=== PATIENT | female | born 1945 | race Caucasian/White ===

== ENCOUNTER → 2022-05-31 14:15 | Outpatient (CLI) | payer MEDICARE, SELFPAY ==
[2022-05-31 16:12] LABS: Basophils # 0.1 K/mm3 (0-0.2); Basophils % 0.9 % (0.1-2.0); Eosinophils # 0.2 K/mm3 (0.0-0.4); Eosinophils % 3.2 % (0.1-12.0); Hematocrit 43.9 % (37.0-47.0); Hemoglobin 13.5 g/dL (12.2-16.2); Lymphocytes # 1.6 K/mm3 (0.7-4.5); Lymphocytes % 31.1 % (10-50); Mean Corpuscular HGB Conc 30.7 g/dL (31.8-35.4); Mean Corpuscular Hemoglobin 31.2 pg (27.0-31.2); Mean Corpuscular Volume 101.4 fl (81-99); Mean Platelet Volume 9.4 fl (7.4-10.4); Monocytes # 0.3 K/mm3 (0.1-1.0); Neutrophils # 3.1 K/mm3 (1.8-7.8); Neutrophils % 58.8 % (37.0-80.0); Platelet Count 201 K/mm3 (142-424); Red Blood Count 4.33 M/mm3 (4.20-5.40); White Blood Count 5.2 K/mm3 (4.8-10.8)
[2022-05-31 17:14] LABS: Alanine Aminotransferase 16 U/L (12-78); Albumin Level 4.1 g/dl (3.5-5.0); Alkaline Phosphatase 126 U/L (38-126); Anion Gap 13.3 mEq/L (5-15); Aspartate Amino Transferase 42 U/L (14-36); Bilirubin,Direct 0.2 mg/dl (0.0-0.4); Bilirubin,Indirect 0.2 mg/dL (0.0-0.9); Bilirubin,Total 0.4 mg/dl (0.2-1.3); Bilirubin,Unconjugated 0.2 mg/dL (0.0-1.1); Blood Urea Nitrogen 20 mg/dl (7-17); Calcium 9.6 mg/dl (8.4-10.2); Carbon Dioxide 23 mmol/L (22.0-30.0); Chloride 107 mmol/L (98-107); Estimated Glomerular Filt Rate 81 ml/min (>60); GFR (African American) 98 ML/MIN (>60); Glucose 79 mg/dl (74-100); Potassium 5.3 mmoL/L (3.5-5.1); Sodium 138 mmol/L (136-145); Total Protein,Serum 7.3 g/dl (6.3-8.2)
[2022-05-31 17:34] LABS: Thyroid Stimulating Hormone 7.84 uIU/mL (0.465-4.68)
[2022-05-31 22:44] LABS: Free T4 (Free Thyroxine) 0.73 ng/dl (0.78-2.19)
== END ==
PROVIDERS: PCP Internal Medicine; Visit Provider Physician Assistant
DX: R07.89 Other chest pain; R55 Syncope and collapse; R60.9 Edema, unspecified; R94.31 Abnormal electrocardiogram [ECG] [EKG]; Z82.49 Family history of ischemic heart disease and other diseases of the circulatory system; E11.9 Type 2 diabetes mellitus without complications; I63.9 Cerebral infarction, unspecified; R06.00 Dyspnea, unspecified
CPT/HCPCS: 36415; 80048; 80076; 84439; 84443; 85025; 93270

== ENCOUNTER → 2022-06-10 10:37 | Outpatient (CLI) | payer MEDICARE, SELFPAY ==
--- NOTE | 2022-06-10 10:42 | CA_ITS ---
APPROVED REPORT EXAM: Comprehensive 2D, Doppler, and color-flow Echocardiogram Deputy Clerk Of Court: Isabel Perez RDCS Ht: 5 ft 5 in Wt: 166lbs BSA: 1.83 BP: 124/70 mmHg Indications: ABN EKG,PALPS,SYNCOPE 2D Dimensions LVOT 1.72 cm (M/F) 1.5-2.5 LA Volume 39.50 mL LA Volume Index 21.70 mL/m2 (M/F) 16-34 M-Mode Dimensions RVDd 1.41 cm (0.9-2.6) LA Diam 3.01 cm (1.9-4.0) LVDd 4.84 cm (3.5-5.7) Ao Diam 3.30 cm (2.0-3.7) LVDs 3.01 cm (3.5-5.7) IVSd 1.11 cm (0.6-1.1) PWd 0.84 cm (0.6-1.1) EF (Teich) 67.80% FS 37.80% EDV (Teich) 109.60 mL TAPSE 1.73 (<1.7) ESV (Teich) 35.30 mL LV Diastology E Decel Time 167.00 (160-240 msec) E/A Ratio 1.1 MED E' 7.60 (< 7 cm/sec) E'/MED E' Ratio 6.59 (>14) LAT E' 8.40 (<10 cm/sec) E/LAT E' Ratio 5.96 (>14) Aortic Valve AI PHT 510.00 ms Mitral Valve MV E Max Timbo. 50.00 (40-130 cm/s) MV A Velocity 46.00 (40-130 cm/s) E/A Ratio 1.08 MV Decel. Time 167.00 (160-240 ms) MV PHT 49.00 ms Left Ventricle Technically difficult study because of the patient factors and poor acoustic windows. Left atrium is mildly enlarged, left ventricle is normal size, estimated ejection fraction 55% with no regional wall motion abnormality, diastolic parameters are inconclusive. Right Ventricle Right atrium and right ventricle are normal size and contractility. Aortic Valve Aortic valve is thickened and calcified without aortic stenosis, there is mild aortic insufficiency. Mitral Valve Mitral valve is grossly normal, there is trace mitral regurgitation. Tricuspid Valve Tricuspid valve grossly normal, there is trace tricuspid regurgitation, tricuspid regurgitation jet velocity is inadequate for calculation of the right ventricular systolic pressure. Pulmonic Valve Pulmonic valve is poorly visualized. Great Vessels Aortic root is normal size. Inferior vena cava is poorly visualized. Pericardium No significant pericardial effusion noted. Conclusion 1. Mildly enlarged left atrium, normal left ventricular size, estimated ejection fraction 55% with no regional wall motion abnormality, diastolic parameters are inconclusive. 2. Thickened and calcified aortic valve without aortic stenosis, there is mild aortic insufficiency. 3. Trace mitral and tricuspid regurgitation. 4. No significant pericardial effusion noted. 5. Inferior vena cava is poorly visualized. Electronically signed by : Payam Fuchs MD 06/10/2022 13:37:45
== END ==
PROVIDERS: PCP Internal Medicine; Visit Provider Physician Assistant
DX: R07.89 Other chest pain; R94.31 Abnormal electrocardiogram [ECG] [EKG]; Z82.49 Family history of ischemic heart disease and other diseases of the circulatory system; R00.2 Palpitations
CPT/HCPCS: 93306

== ENCOUNTER 2025-02-07 11:57 | Day surgery (SDC) | payer MEDICARE, SELFPAY ==
[2025-02-06 12:34] VITALS: BMI 29.2
[2025-02-07 12:19] VITALS: BP 130/75; PULSE 75; RESP 18; TEMP 36.4; O2SAT 100
--- NOTE | 2025-02-07 12:56 | ECG_ITS ---
APPROVED REPORT Exam: Resting ECG HR:66 bpm ECG Measurements Heart Rate 66 AXES AR 152 P 53 QRSd 79 QRS 18 QT 387 T 23 QTc 400 Conclusion SINUS RHYTHM WITH OCCASIONAL SUPRAVENTRICULAR PREMATURE COMPLEXES BORDERLINE ECG UNCONFIRMED REPORT Electronically signed by : Jesus Costello MD 02/09/2025 06:41:19
--- NOTE | 2025-02-07 13:04 | P.PNANES_ITS ---
[facility] Disclaimer: The information contained in this section may have been updated after the patient was seen, as this information can be updated by other users. Medical History No significant past medical history Surgical History History of hip replacement History of gastric bypass History of appendectomy History of cholecystectomy Family History Other Family history of cancer Social History Smoking Status: Never smoker second hand exposure: No alcohol intake: never substance use type: denies use current occupational status: retired Travel in the last 8 weeks?: Inside the [place] household members: spouse Have you lived/traveled outside [place] in past 30 days?: No Contact w/someone who lives/traveled outside US past 30 days?: No Exposure to someone with infectious disease in past 14 days?: No Do you have a fever (greater than 100.4 F or 38 C)?: No Have you tested positive for COVID-19?: Yes Exposed to someone with COVID-19 in past 14 days?: No Do you have a sore throat?: No Do you have a cough?: No Do you have any weakness?: No Are you experiencing any nausea/vomitting?: No Do you have any diarrhea?: No Are you experiencing any unusual bleeding?: No Do you have any muscle aches/pain?: No Do you have any abdominal pain?: No Are you experiencing loss of taste or smell?: No [facility] Anesthesia Checklist Patient Identification Patient Identification: Arm Band and Verbal (Name & ) Structural Data Admitted From: Home Planned Operative Procedure/s: intrathecial pump Consent for Planned Operative Procedure(s) Verified: Yes Verified Documents: Surgical Consent and History and Physical NPO Status Verified Time NPO: 00:00 Additional verifications Patient : No Anesthesia Reactions: No Hx Blood Transfusions: No Blood Transfusion Reaction: No Airway Assessment Mallampati Score:: Class II Dentition: Good Dentition Neurological Assessment Level of Consciousness: Awake, Alert and Appropriate Hx Seizures: No Anesthesia Plan Anesthesia Risk discussed: Yes Anesthesia Plan: Verified ASA Class: II Anesthesia Type: MAC
[2025-02-07] MEDS: LIDOCAINE 1% W/EPI 1:100,000 20ML VIAL 40 ML (13:51)
[2025-02-07] MEDS: CEFAZOLIN SODIUM 1 GM in 0.9 % SODIUM CHLORIDE 50 ML IV (13:51)
[2025-02-07] MEDS: SODIUM CHLORIDE 0.9% 20ML VIAL 40 ML IV (13:51)
[2025-02-07] MEDS: GENTAMICIN 80 MG/2 ML VIAL (13:52)
[2025-02-07 14:22] VITALS: BP 120/54; PULSE 80; RESP 16; TEMP 36.6; O2SAT 98
[2025-02-07 14:32] VITALS: BP 106/63; PULSE 79; RESP 16; O2SAT 97
--- NOTE | 2025-02-07 14:33 | EXP.OP.NOTE ---
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 She is had some increasing pain with a volume discrepancy at her last refill. Actual volume was more than expected volume. We did attempt to do an intrathecal catheter dye study we could not withdraw any medication or CSF. It was suspected that her intrathecal catheter was kinked. Her pump was also been flipping. Patient presents for revision/replacement of her intrathecal catheter today. She is currently on intrathecal morphine at 0.6 mg/day. Operative findings:: None Operative note:: Informed consent was obtained risk and benefits of the procedure were explained to the patient. The patient was taken the operating room placed prone on the procedure table. They did have issues with her IV and had to started a new IV intraoperatively. The skin and subcutaneous tissues overlying her pump were anesthetized using lidocaine. I made incision dissected out the pump generator. The catheter was found to be twisted in the pocket. There was kinking of the catheter. We were unable to unwind the intrathecal catheter. I made a decision to replace intrathecal catheter. We did disconnect the catheter. We tied off with 0 silk ties x 3. C-arm fluoroscopy was used to view the lumbar spine. The skin and subcutaneous tissues adjacent to the L5-S1 interspace were anesthetized using lidocaine. I made an incision dissected down to the lumbar paraspinous fascia. A 17-gauge spinal needle was inserted and advanced into the L5-S1 interspace until clear CSF was obtained. After this intrathecal catheter was inserted and advanced very easily to the T8 vertebral body. The catheter was found to be in good position. It was midline and posterior. The stylette of the catheter and the needle were withdrawn. The catheter was secured to the fascia with an anchor device and 2-0 Prolene. We did check the pump volume it had 17 mL of intrathecal morphine 1 mg/mL. We tunneled catheter from the back to the pump pocket. I attached catheter to the pump. We are able to freely withdraw clear CSF through the sideport. The pump was then placed back in the pocket with an antibiotic pouch. Both incisions were closed with 2-0 Vicryl followed by 4-0 nylon and gunnar. The patient was placed in an abdominal binder and taken recovery in stable condition. Patient tolerated the procedure well with no complications. Pump was interrogated and started back at 0.048 mg/day. This was the lowest programmable dose. It was a 20% decrease. Patient was discharged home neurologic intact with good relief of pain symptoms. Plan and disposition: Follow-up with this patient in 1 week for reprogramming and wound check. Will follow-up in 2 to 3 weeks for suture and staple removal. Condition: stable Disposition: PACU Complications:: None
[2025-02-07 14:42] VITALS: BP 113/52; PULSE 76; RESP 16; O2SAT 98
[2025-02-07 14:52] VITALS: BP 116/60; PULSE 72; RESP 16; O2SAT 98
== END 2025-02-07 15:05 | disposition home or self-care (01) ==
PROVIDERS: PCP Internal Medicine Cardiovascular Disease; Visit Provider Anesthesiology
DX: T85.620A Displacement of cranial or spinal infusion catheter, initial encounter (principal); Y75.2 Prosthetic and other implants, materials and neurological devices associated with adverse incidents; Y92.89 Other specified places as the place of occurrence of the external cause; Y83.8 Other surgical procedures as the cause of abnormal reaction of the patient, or of later complication, without mention of misadventure at the time of the procedure; Z90.49 Acquired absence of other specified parts of digestive tract; M51.16 Intervertebral disc disorders with radiculopathy, lumbar region; Z96.649 Presence of unspecified artificial hip joint; Z88.8 Allergy status to other drugs, medicaments and biological substances; Z79.891 Long term (current) use of opiate analgesic
CPT/HCPCS: 62350; 93005; 96374; C1755; J1580; J2003; J2004; J2250; J2405; J2704; J3010